=== PATIENT | female | born 1965 | race Caucasian/White ===

== ENCOUNTER 2018-01-01 08:48 | Day surgery (SDC) | payer OTHER ==
[2017-12-29 11:09] LABS: Absolute Lymphocytes (CBC) 2.1 K/uL (0.7-4.9); Absolute Monocytes 0.7 K/uL (0.1-1.3); Absolute Neutrophil 7.6 K/uL (1.8-8.0); Basophils % 0.6 % (0-1.3); Eosinophils % 1.5 % (0-4.4); Hematocrit 43.5 % (36.0-45.0); Lymphocytes % 19.9 % (15.3-44.8); MCH 29.7 pg (27.0-35.0); MCV 89.2 fL (80-100); MPV 8.7 fL (7.6-11.3); Monocytes % 6.6 % (3.3-12.3); RBC Red Blood Cell Count 4.88 M/uL (3.86-4.86)
[2017-12-29 11:28] LABS: BUN Blood Urea Nitrogen 12 mg/dL (7-18); Bicarbonate 29 mmol/L (21-32); Glucose Level 81 mg/dL (74-106); Sodium Level 139 mmol/L (136-145)
[2018-01-01] MEDS: D50W 25 GM/50 ML SYRINGE IV ONE ×2 (09:52→11:10)
[2018-01-01] MEDS ORDERED: SCOPOLAMINE HYDROBROMIDE PATCH TD ONE (10:02)
[2018-01-01] MEDS ORDERED: NA CHLORIDE 0.9% 1,000 ML ONE ×2 (10:03→13:15)
[2018-01-01] MEDS ORDERED: ROCURONIUM 50 MG/5 ML VIAL IV ONE (10:32)
[2018-01-01] MEDS ORDERED: PROPOFOL 200 MG/20 ML VIAL IV ONE (10:32)
[2018-01-01] MEDS ORDERED: DEXAMETHASONE 10 MG/ML VIAL ONE (10:32)
[2018-01-01] MEDS ORDERED: MIDAZOLAM HCL 2 MG/2 ML INJ ONE (10:33)
[2018-01-01] MEDS ORDERED: LIDOCAINE 2% MPF 5 ML VIAL ONE (10:33)
[2018-01-01] MEDS ORDERED: FENTANYL CITR 250 MCG/5 ML ONE (10:33)
[2018-01-01] MEDS ORDERED: ONDANSETRON HCL 40 MG/20 ML VIAL ONE (10:33)
[2018-01-01] MEDS: NA CHLORIDE 0.9% 1,000 ML ONE ×5 (11:35→12:45)
[2018-01-01] MEDS: CEFAZOLIN/SWI 2gm 2 GM/20 ML SYR IV SCH ×2 (11:35→11:38)
[2018-01-01] MEDS ORDERED: EPHEDRINE SULF 50 MG/5 ML SYR ONE (11:44)
[2018-01-01] MEDS ORDERED: FENTANYL CITR 100 MCG/2 ML ONE (12:44)
[2018-01-01] MEDS ORDERED: KETOROLAC 30 MG/ML INJ ONE (13:59)
[2018-01-01] MEDS ORDERED: METOCLOPRAMIDE 10 MG/2mL INJ ONE (14:18)
[2018-01-01] MEDS: MORPHINE 4 MG/ML SYR ONE ×2 (14:52→14:57)
[2018-01-01] MEDS ORDERED: ONDANSETRON 4 MG/2 ML VIAL ONE (15:54)
[2018-01-01] MEDS ORDERED: IBUPROFEN 200 MG TAB PO ONE (16:06)
--- NOTE | 2018-01-02 01:24 | OP ---
Date of Procedure: 01/01/2018 Surgeon: Nicolle Wood MD Packaging Sales: Boubacar Trevino. Preoperative Diagnoses: Heavy menstrual bleeding, recurrent after ablation, dysmenorrhea. Postoperative Diagnoses: Heavy menstrual bleeding, recurrent after ablation, dysmenorrhea and endome triosis. Procedures Performed: Total laparoscopic hysterectomy, bilateral salpingo-oophorectomy, endometriosi s excision and cystoscopy. Estimated Blood Loss: Minimal. Complications: No complications. Drains: No drains. Condition: Stable. Specimens: Uterus bilateral tubes and ovaries along with the endometriosis on the utero-ovarian liga ment as well as in the posterior cul-de-sac on the peritoneum, which was included with the uterine sp ecimen. Findings: Uterus was mildly enlarged. There was evidence of endometriotic cyst on the utero-ovarian ligament and there were adhesions of the tubes to the anterior cul-de-sac peritoneum, both on the le ft and right side. There were bilateral hydrosalpinges, left more than the right side. The tube was adhered to the round ligament on both sides. Ovaries appeared to be mostly unremarkable. There is endometriosis in the posterior cul-de-sac on the peritoneum, right below the level of the vaginal cuf f here. The excision was done further down enough to be able to remove the endometriosis. No endometriotic implants were seen. After the procedure was done, pelvic peritoneum and tissues wer e cleaned. Cysto, patent ureteric orifices and no evidence of any physical or electrical trauma to t he bladder. The patient had heavy periods and she underwent endometrial sampling and then an endometrial ablation procedure last year. However, in the last 6 months, she has recurred with her bleeding and the malu ods were very painful, so she had seen me, we discussed about need for hysterectomy if ablation has r ecurred and her pain is intolerable. In the last 3 months, the periods have not come back and she is perimenopausal and however we discussed about the procedure itself and the patient wanted to proceed with hysterectomy, tubes and ovaries removal since she did not want to take any further chances of h aving periods. Also given her risk factors for endometrial adenocarcinoma or overweight status and d iabetes, decided to proceed with this. Description Of Procedure: After informed consent was verified, she was taken back to the OR, placed in a supine fashion on the operating table. After general anesthesia was given, she was placed in a dorsal lithotomy position using Rommel stirrups. Pelvic exam was performed. Uterus was anteflexed an d 8 weeks size. No adnexal masses. Abdomen, vulva, vagina, and perineum were prepped and draped in a sterile fashion. One gram of Ancef was given preop. SCDs were started and her sugars were checked. After Miller was placed and a drain was attached to cysto bag for retrograde filling and then a large VCare was fixed inside the uterus and this area was draped. A 1 cm infraumbilical incision was made with a scalpel using the open laparoscopy technique. Fascia was incised and tagged. The peritoneum was entered bluntly. Site of entry was checked and was unrem arkable. Upper abdominal surfaces were completely normal. No evidence of any endometriosis. Liver and gallbladder normal. The patient was placed in T-murray, little steeper than usual because of her w eight and the fat contents of the abdomen. A 5 mm left lower quadrant and a 10 mm suprapubic ports w ere placed under direct vision. Later on, a right lower quadrant 5 mm was also placed pretty close t o the vessels; however, there was just very superficial bleeding. No hematoma at the end of the case or evidence of any brisk bleeding despite taking the pneumoperitoneum down. There is a hysterectomy and the pelvic cavity was surveyed and findings as above. There were adhesio ns of the anterior cul-de-sac to the left tube. The tubes had hydrosalpinx and appeared to be shorte nick. There were endometriotic cysts on the utero-ovarian ligament attached to the ovary on its media l aspect than on the left side. This was all on the left than on the right side. There were adhesio ns of the tube to the round ligament and the anterior cul-de-sac. All these were with wayne p dissection with scissors. The bowel was adhered to the left rim of the pelvic inlet. The epiploic ae of the colon had to be taken down from the sidewall in order for me to visualize the ureter and on ce all these were taken down with sharp dissection, then the infundibulopelvic ligament was also rele ased and was easy to cauterize. So at this point, the cul-de-sac adhesions were taken down with the help of sharp scissors. Then, the tube was and the tube was dissected with the LigaSure an d removed, retrieved a specimen. On the opposite side, the anterior cul-de-sac was released from the round ligament and tube, then the round ligament and the tube had to be dissected to separate them f rom each other. There were adhesions of the ovary to the posterior aspect of the lateral wall of the uterus on the right side. All these were taken down to free up the entire adnexa. Then, after the anterior cul-de-sac was surveyed and normal anatomy was restored, it was filled and drained to see it 's borders. All these appeared to be unremarkable. Then, the dissection was started in the anterior peritoneum over the broad ligament on the left side and carried over the bladder flap and to the rig ht side until it got to the round ligament. Then, a window was made in the mesosalpinx and then the round ligament was taken down separately with the LigaSure. Then, the utero-ovarian ligaments with e ndometriosis were first excised. Then, the utero-ovarian ligament was taken down. The posterior per itoneum was taken down and dissection was carried so that the endometriosis was also excised here wit h the help of push spread dissection and the posterior midline aspect. Once all this was included wi th the specimen side, then went on to take down the broad ligament and skeletonized vessels and then on the opposite side, similar dissection was performed. However, on this side, the utero-ovarian lig ament was taken down. The round ligament was taken down and then the posterior part of the broad lig ament was opened up and the vessels were skeletonized. The bladder flap was created with the help of a monopolar hook blade. Then, bladder was dissected down at least 2 cm to 3 cm. Vessels were disse cted laterally after the anterior cervical branch was taken down, then the medial window was made for the vessels and these were taken with a basket tip bipolar and then the LigaSure. The cardinal liga ments were also taken down and on the opposite side all similar dissection was done, then the colpoto my was performed the monopolar hook blade in a circumferential fashion. Specimen detached and remove d through the vagina. There was no evidence of any bleeding. Thorough irrigation and suction were p erformed and appeared to be unremarkable. The ureters appeared to be unremarkable. Then, the ovary from the left side was removed with the help of the cautery with the LigaSure at the IP ligament and then the tube and ovary were dissected from the right side and all the specimens were retrieved throu gh the vagina. Thorough irrigation and suction were performed of the vaginal cuff and this was close d with the help of 2 simple 0 Vicryl stitches at each end and then 3 [id number] in the middle. T horough irrigation and suction were performed. Excellent hemostasis. No bleeding at the site of the left port. After desufflating the gas, we observed to see if there was bleeding and there was not a nd the other trocars were removed. The fascia at the umbilicus closed with a 0 Vicryl in a figure-of -eight fashion and at the suprapubic site with a simple 0 Vicryl stitch and all skin incisions with 4 -0 Monocryl. Vaginal bulb and Miller removed. Cystoscopy was performed with a 17-Khmer sheath, normal saline and 30-degree lens. Strong jets of urine from both ureteric orifices, probably no evidence of any electr ical, mechanical or thermal injury to the bladder. A similar thing with the ureters and the abdomen as well. Instrument, needle, and sponge counts were done and were correct x3. Bladder was drained. The patient was recovered from anesthesia and taken to PACU in stable condition. EBL was minimal. RUSTY/TONI Voice ID: [id number] Report ID: [id number]
== END 2018-01-01 16:45 | disposition home or self-care (01) ==
LOC: OR 08:48
PROVIDERS: ATTEND Obstetrics & Gynecology
PROC: 0UT24ZZ Resection of Bilateral Ovaries, Percutaneous Endoscopic Approach (ICD-10-PCS; 2018-01-01)
PROC: 0UT74ZZ Resection of Bilateral Fallopian Tubes, Percutaneous Endoscopic Approach (ICD-10-PCS; 2018-01-01)
PROC: 0TJB8ZZ Inspection of Bladder, Via Natural or Artificial Opening Endoscopic (ICD-10-PCS; 2018-01-01)
PROC: 0UT94ZZ Resection of Uterus, Percutaneous Endoscopic Approach (ICD-10-PCS; principal; 2018-01-01 10:30)
DX: N92.1 Excessive and frequent menstruation with irregular cycle (principal); E11.9 Type 2 diabetes mellitus without complications; Z79.84 Long term (current) use of oral hypoglycemic drugs; Z79.4 Long term (current) use of insulin; N94.6 Dysmenorrhea, unspecified; N32.81 Overactive bladder; I10 Essential (primary) hypertension; N87.9 Dysplasia of cervix uteri, unspecified; N80.0 Endometriosis of uterus; N83.8 Other noninflammatory disorders of ovary, fallopian tube and broad ligament; N83.292 Other ovarian cyst, left side; N94.89 Other specified conditions associated with female genital organs and menstrual cycle
CPT/HCPCS: 36415; 80048; 82962; 85025; 86850; 86900; 86901; 88305; 88307; J0690; J1100; J2250; J2405; J2765; J3010; J7030

== ENCOUNTER 2022-02-07 20:17 | Inpatient (IN) | payer OTHER ==
--- NOTE | 2022-02-07 21:20 | ER ---
Nurse's Notes [facility] Name: Halie Landa Age: 56 yrs Sex: Female : 1965 Arrival Date: 02/07/2022 Time: 20:22 Bed 15 Private MD: Diagnosis: Cellulitis of right upper limb;Failure of outpatient therapy Presentation: 02/07 20:49 Chief complaint: Patient states: "I started having tightness to my elbow Friday on my vc1 way home from work, brooke Calvin started me on and antibiotic and its just getting worse and worse.". Coronavirus screen: Vaccine status: Patient reports receiving the 2nd dose of the covid vaccine. Plus booster, Moderna. Ebola Screen: No symptoms or risks identified at this time. Initial Sepsis Screen: Does the patient meet any 2 criteria? HR > 90 bpm. No. Patient's initial sepsis screen is negative. Does the patient have a suspected source of infection? Yes: Skin breakdown/wound. Risk Assessment: Do you want to hurt yourself or someone else? Patient reports no desire to harm self or others. Onset of symptoms was February 04, 2022. 20:49 Method Of Arrival: Ambulatory vc1 20:49 Acuity: [place] 3 vc1 Triage Assessment: 20:52 General: Appears in no apparent distress. comfortable, Behavior is calm, cooperative, vc1 appropriate for age. Pain: Complains of pain in right elbow Pain does not radiate. Pain currently is 6 out of 10 on a pain scale. EENT: No signs and/or symptoms were reported regarding the EENT system. Neuro: Level of Consciousness is awake, alert, obeys commands, Oriented to person, place, time, situation, Appropriate for age. Cardiovascular: Patient's skin is warm and dry. Respiratory: Airway is patent Respiratory effort is even, unlabored, Respiratory pattern is regular, symmetrical. GI: No deficits noted. : No deficits noted. Derm: Wound noted right elbow Wound is Red, inflamed, warm to touch. Reports pain that is 6 out of 10 on a pain scale. Musculoskeletal: Range of motion: limited in right elbow. Historical: - Allergies: 20:52 No Known Allergies; vc1 - PMHx: 20:52 Diabetes mellitus; Hypertensive disorder; high chloresterol; vc1 - Immunization history:: Adult Immunizations up to date, Client reports receiving the 2nd dose of the Covid vaccine. - Social history:: Smoking status: Patient denies any tobacco usage or history of. - Family history:: not pertinent. - Hospitalizations: : No recent hospitalization is reported. Screenin:55 Abuse screen: Denies threats or abuse. Nutritional screening: No deficits noted. vc1 Tuberculosis screening: No symptoms or risk factors identified. Fall Risk None identified. Assessment: 21:23 Pain: Complains of pain in back of right arm. Musculoskeletal: Range of motion: intact ja4 in all extremities, Swelling present in back of right arm. 22:43 Reassessment: pt appears to be having a reaction to the meds given to her. provider [email or web address] notified. pt face started itching and turning red. unable to tell which meds caused it. will cont to monitor. benadryl given. Vital Signs: 20:49 BP 138 / 78; Pulse 113; Resp 15; Temp 100.2; Pulse Ox 100% on R/A; Weight 88.45 kg; vc1 Height 5 ft. 5 in. (165.10 cm); Pain 6/10; 21:47 BP 141 / 70; Pulse 106; Resp 20; Pulse Ox 99% on R/A; Pain 7/10; ja4 22:46 Pain 5/10; ja4 20:49 Body Mass Index 32.45 (88.45 kg, 165.10 cm) vc1 ED Course: 20:22 Patient arrived in ED. ja2 20:30 Nixon Khan MD is Attending Physician. rn 20:46 Cristhian Carney RN is Primary Nurse. ja4 20:52 Triage completed. vc1 20:55 Arm band placed on right wrist. vc1 20:55 Patient has correct armband on for positive identification. Bed in low position. Pulse vc1 ox on. NIBP on. 21:19 Kurt Brown MD is Hospitalizing Provider. rn 21:23 No provider procedures requiring assistance completed. Inserted saline lock: 18 gauge aishwarya in left antecubital area, using aseptic technique. Blood collected. 21:37 Lactate Sent. ja4 21:37 Basic Metabolic Panel Sent. ja4 21:37 Blood Culture Adult (2) Sent. ja4 21:38 CBC with Diff Sent. ja4 02/08 16:50 Patient admitted, IV remains in place. jh6 Administered Medications: 02/07 21:47 Drug: vancoMYCIN 1 grams Route: IVPB; Infused Over: 2 hrs; Site: left antecubital; [facility] 22:29 Drug: Zofran (Ondansetron) 4 mg Route: IVP; Site: left antecubital; ja4 22:30 Drug: morphine 4 mg Route: IVP; Infused Over: 4 mins; Site: left antecubital; 4 22:46 Follow up: Pain 5/10 Adult ja 22:55 Drug: diphenhydrAMINE 50 mg Route: IVP; Site: left antecubital; 4 Medication: 20:55 VIS not applicable for this client. vc1 Outcome: 21:19 Decision to Hospitalize by Provider. yared 02/08 04:58 Admitted to ER Hold. Please see [facility] for further documentation. [facility] 16:49 Admitted to Tele accompanied by tech, room 418, Report called to [facility] 16:49 Condition: good 16:54 Patient left the ED. [facility] Signatures: Nixon Khan MD MD rn Alexander, Jessica ja2 Hastedt, Jennifer RN RN 6 Courtney Ross RN RN vc1 Cristhian Carney RN RN [email or web address]
--- NOTE | 2022-02-07 21:20 | EDPHYS ---
Physician Documentation [facility] Name: Halie Landa Age: 56 yrs Sex: Female : 1965 Arrival Date: 02/07/2022 Time: 20:22 Bed 15 Private MD: ED Physician Nixon Khan HPI: 02/07 20:25 This 56 yrs old Female presents to ER via Unassigned with complaints of Arm Swelling. snw 20:25 Dr. Calvin phoned the ED reporting that this patient was seen in his clinic this week snw with a rash to her torso, cortisone injection given and pt did have some relief. Three days ago her elbow began to swell and he dx her with olecranon bursitis. She was placed on Keflex. Pt is now having fever and increased discomfort. Dr. Calvin instructed her to come to the ED for admission for IV abx.. 21:04 The patient presents with cellulitis of the right elbow. rn 21:04 Description: erythematous, hot, warm. Onset: The symptoms/episode began/occurred 4 rn day(s) ago. Possible cause(s): unknown. Associated signs and symptoms: Pertinent positives: erythema, fever, swelling, Pertinent negatives: discharge, drainage. Modifying factors: the symptoms are alleviated by nothing, the symptoms are aggravated by movement, touching. Severity of symptoms: At their worst the symptoms were moderate, in the emergency department the symptoms are unchanged. The patient has not experienced similar symptoms in the past. Placed on keflex, worsening cellulitis, sent in for admission for IV abx by Dr. Calvin. . Historical: - Allergies: 20:52 No Known Allergies; vc1 - PMHx: 20:52 Diabetes mellitus; Hypertensive disorder; high chloresterol; vc1 - Immunization history:: Adult Immunizations up to date, Client reports receiving the 2nd dose of the Covid vaccine. - Social history:: Smoking status: Patient denies any tobacco usage or history of. - Family history:: not pertinent. - Hospitalizations: : No recent hospitalization is reported. ROS: 21:04 Constitutional: + for fever Cardiovascular: Negative for chest pain, palpitations, and rn edema Respiratory: Negative for shortness of breath, cough, wheezing, and pleuritic chest pain, Abdomen/GI: Negative for abdominal pain, nausea, vomiting, diarrhea, and constipation, MS/Extremity: + right arm redness and warmth Skin: Negative for injury Neuro: Negative for headache, weakness, numbness, tingling, and seizure. Exam: 21:04 Constitutional: This is a well developed, well nourished patient who is awake, alert, rn and in no acute distress. Head/Face: Normocephalic, atraumatic. Cardiovascular: Tachycardic, regular Respiratory: No increased work of breathing, no retractions or nasal flaring. Skin: Warm, dry, + erythema and induration right elbow, no proximal streaking MS/ Extremity: Pulses equal, no cyanosis, tenderness over right elbow at area of erythema, no fluctuance, good ROM of right elbow. Neuro: Awake and alert, GCS 15 Vital Signs: 20:49 BP 138 / 78; Pulse 113; Resp 15; Temp 100.2; Pulse Ox 100% on R/A; Weight 88.45 kg; vc1 Height 5 ft. 5 in. (165.10 cm); Pain 6/10; 21:47 BP 141 / 70; Pulse 106; Resp 20; Pulse Ox 99% on R/A; Pain 7/10; ja4 22:46 Pain 5/10; ja4 20:49 Body Mass Index 32.45 (88.45 kg, 165.10 cm) vc1 MDM: 20:30 Patient medically screened. rn 21:18 Differential diagnosis: cellulitis, infected bursitis, bursitis. Data reviewed: vital rn signs, nurses notes, and as a result, I will admit patient. Counseling: I had a detailed discussion with the patient and/or guardian regarding: the historical points, exam findings, and any diagnostic results supporting the discharge/admit diagnosis, the need for further work-up and treatment in the hospital. Admission orders: after a detailed discussion of the patient's condition and case, the admit orders are written by me. 02/07 20:46 Order name: CBC with Diff; Complete Time: 21:40 rn 02/07 20:46 Order name: Basic Metabolic Panel; Complete Time: 21:58 rn 02/07 20:46 Order name: Blood Culture Adult (2) rn 02/07 20:51 Order name: Lactate; Complete Time: 21:58 la1 02/08 00:42 Order name: SARS RAPID tw5 02/08 03:34 Order name: CBC with Automated Diff; Complete Time: 04:09 EDMS 02/08 03:52 Order name: Basic Metabolic Panel; Complete Time: 04:09 EDMS 02/08 04:07 Order name: SARS-COV-2 RT PCR; Complete Time: 04:09 EDMS 02/08 08:21 Order name: Glucose, Ancillary Testing EDMS 02/08 11:33 Order name: Glucose, Ancillary Testing EDMS 02/08 12:07 Order name: US EDMS 02/08 13:16 Order name: RAD EDMS 02/08 16:45 Order name: Glucose, Ancillary Testing EDMS 02/07 20:46 Order name: IV Start; Complete Time: 21:38 rn Administered Medications: 21:47 Drug: vancoMYCIN 1 grams Route: IVPB; Infused Over: 2 hrs; Site: left antecubital; ja4 22:29 Drug: Zofran (Ondansetron) 4 mg Route: IVP; Site: left antecubital; ja4 22:30 Drug: morphine 4 mg Route: IVP; Infused Over: 4 mins; Site: left antecubital; ja4 22:46 Follow up: Pain 5/10 Adult ja4 22:55 Drug: diphenhydrAMINE 50 mg Route: IVP; Site: left antecubital; ja4 Disposition Summary: 02/07/22 21:19 Hospitalization Ordered Hospitalization Status: Inpatient Admission rn Provider: Kurt Brown rn Condition: Stable rn Problem: new rn Symptoms: have worsened rn Bed/Room Type: Standard rn Location: Telemetry/MedSurg (Inpatient)(02/08/22 15:41) [facility] Room Assignment: 418(02/08/22 15:41) [facility] Diagnosis - Cellulitis of right upper limb rn - Failure of outpatient therapy rn Forms: - Medication Reconciliation Form rn - SBAR form rn Signatures: Dispatcher [employer] Jyoti Gibson, NE[employer] MANAGER PRACTICE-Nixon Evans MD MD rn Attema, Lee, FNP-C FNP-Phoebe Mcknight RN Lupillo Bhakta RN RN ja1 Courtney Ross RN RN 1 Cristhian Carney, RN RN ja4 Corrections: (The following items were deleted from the chart) 02/08 00:14 02/07 21:19 Telemetry/MedSurg (Inpatient) [facility] 02/08 00:14 02/07 21:19 [facility] 02/08 15:41 00:14 [facility] ja1 15: 00:[address] [facility] ja1
[2022-02-07 21:36] LABS: Absolute Lymphocytes (CBC) 1.2 K/uL (0.7-4.9); Hematocrit 40.7 % (36.0-45.0); Lymphocytes % 9.8 % (15.3-44.8); MCV 90.2 fL (80-100); MPV 8.4 fL (7.6-11.3); RBC Red Blood Cell Count 4.51 M/uL (3.86-4.86)
[2022-02-07] MEDS ORDERED: VANCOMYCIN 1 GM/VIAL ONE (21:49)
[2022-02-07] MEDS ORDERED: NA CHLORIDE 0.9% 250 ML ONE (21:49)
[2022-02-07 21:51] LABS: Potassium 4.1 mmol/L (3.5-5.1)
[2022-02-07] MEDS ORDERED: MORPHINE 4 MG/ML SYR ONE (22:35)
[2022-02-07] MEDS ORDERED: ONDANSETRON 4 MG/2 ML VIAL ONE (22:36)
[2022-02-07] MEDS ORDERED: DIPHENHYDRAMINE 50 MG/ML VIAL ONE (22:47)
[2022-02-08] MEDS ORDERED: ONDANSETRON 4 MG/2 ML VIAL IV PRN (00:34)
--- NOTE | 2022-02-08 00:46 | P.HP ---
Certification for Inpatient Patient admitted to: Inpatient With expected LOS: >2 Midnights Patient will require the following post-hospital care: None Practitioner: I am a practitioner with admitting privileges, knowledge of patient current condition, hospital course, and medical plan of care. Services: Services provided to patient in accordance with Admission requirements found in Title 42 Section 412.3 of the Code of Federal Regulations <RejiNicolas Jang - Last Filed: 02/08/22 00:42> Patient History Date of Service: 02/08/22 Reason for admission: Sepsis, cellulitis History of Present Illness: 56-year-old female with history of insulin-dependent diabetes, hypertension and hyperlipidemia presents to the emergency department for cellulitis of the right arm. She reports that on 02/04/2022 she noticed some pain and redness on her right elbow she was seen by her PCP and prescribed Keflex on 02/05/2022 which she has taken since then the last day or 2 she is noted increasing pain, erythema to the area as well as some constitutional symptoms with chills and possible low- grade fever at home. Upon arrival to the emergency department patient was tachycardic with a heart rate of 113 she also met the SIRS criteria for a white blood cell count of 12.4 with source of infection her lactic acid was 1.1 no hypotension was recorded. Patient meets criteria for sepsis secondary to cellulitis of the right elbow area and may have begun as a bursitis but now appears to be more cellulitic of the right arm surrounding the elbow she has no pain with range of motion of her elbow there is no fluctuant area or fluid collection to incise or drain on exam. Patient was given vancomycin in the emergency room but had an adverse reaction likely with "red man" syndrome after receiving vancomycin. Medication was discontinued antibiotic switched to Ancef. Will admit for further evaluation and management. 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 with her family - Family History Family History: Reviewed- Non-Contributory - Social History Smoking Status: Never smoker Alcohol use: No CD- Drugs: No Caffeine use: Yes Place of Residence: Home <Nicolas Mendoza - Last Filed: 02/08/22 00:42> Date of Service: 02/08/22 <Kurt Brown - Last Filed: 02/08/22 16:31> Allergies codeine Allergy (Verified 12/29/17 10:05) Nausea/Vomiting Home Medications: Atorvastatin Calcium [Lipitor] 20 mg PO DAILY 10/14/16 Dulaglutide [Trulicity] 0.75 mg SQ EVERY 7TH DAY 10/14/16 Empagliflozin [Jardiance] 10 mg PO DAILY 10/14/16 Irbesartan [Avapro] 150 mg PO [id number] 10/14/16 Insulin Degludec [Tresiba Flextouch U-200] 40 unit SQ DAILY 12/29/17 Zolpidem Tartrate [Ambien] 10 mg PO BEDTIME PRN PRN 12/29/17 Fluoxetine HCl [Prozac] 20 mg PO DAILY 02/08/22 Review of Systems 10-point ROS is otherwise unremarkable General: Fever, Chills Integumentary: Rash, As per HPI <Nicolas Mendoza - Last Filed: 02/08/22 00:42> Physical Examination - Physical Exam General: Alert, In no apparent distress, Oriented x3 HEENT: Atraumatic, PERRLA, Mucous membr. moist/pink, EOMI, Sclerae nonicteric Neck: Supple, 2+ carotid pulse no bruit, No LAD, Without JVD or thyroid abnormality Respiratory: Clear to auscultation bilaterally, Normal air movement Cardiovascular: Regular rate/rhythm, Normal S1 S2 Gastrointestinal: Normal bowel sounds, No tenderness Musculoskeletal: No tenderness Integumentary: Tenderness/swelling, Erythema (Surrounding right elbow including proximal forearm and distal humeral area), Warmth Neurological: Normal gait, Normal speech, Normal strength at 5/5 x4 extr, Normal tone, Normal affect Lymphatics: No axilla or inguinal lymphadenopathy - Studies Laboratory Data (last 24 hrs) 02/07/22 21:11: Sodium 139, Potassium 4.1, BUN 8, Creatinine 0.86, Glucose 122 H 02/07/22 21:11: WBC 12.4 H, Hgb 13.5, Hct 40.7, Plt Count 295 <Nicolas Mendoza - Last Filed: 02/08/22 00:42> - Studies Laboratory Data (last 24 hrs) 02/07/22 21:11: Sodium 139, Potassium 4.1, BUN 8, Creatinine 0.86, Glucose 122 H 02/07/22 21:11: WBC 12.4 H, Hgb 13.5, Hct 40.7, Plt Count 295 <Kurt Brown - Last Filed: 02/08/22 16:31> Assessment and Plan - Plan Assessment: Sepsis secondary to cellulitis of the right upper extremityfailed outpatient therapy Diabetes type 2insulin-dependent Hyperlipidemia Plan: Sepsis secondary to cellulitis of the right upper extremityfailed outpatient therapy: Meet SIRS criteria for heart rate and leukocytosis, normal lactic acid no hypotension or other organ dysfunction to suggest severe sepsis. Patient had adverse reaction with "red man" syndrome to vancomycin given in the ER antibiotic switched to Ancef. Patient had been on Keflex 3 times daily for the past 4 days without improvement. Patient without painful range of motion of the elbow doubt septic joint, no area of fluctuance or fluid collection noted may have begun as bursitis but now seems developed into a cellulitis. Diabetes type 2insulin-dependent: ACH S Accu-Chek, sliding scale insulin. Continue patient's long-acting insulin when doses confirmed. Hyperlipidemia: Continue home medications. DVT PPX: Lovenox Code status: Full Discharge Plan: Home Plan to discharge in: 72 Hours - Advance Directives Does patient have a Living Will: No Does patient have a Durable POA for Healthcare: No - Code Status/Comfort Care Code Status Assessed: Yes (Full code) Critical Care: No Time Spent Managing Pts Care (In Minutes): 70 <Nicolas Mendoza - Last Filed: 02/08/22 00:42> Physician Review: Patient Assessed, Agree with Above Assessment and Plan <Kurt Brown - Last Filed: 02/08/22 16:31>
[2022-02-08] MEDS ORDERED: CEFAZOLIN 1 GM in NA CHLORIDE 0.9% 50 ML IVPB SCH (01:00)
[2022-02-08 03:34] LABS: Absolute Lymphocytes (CBC) 1.5 K/uL (0.7-4.9); Hematocrit 35.4 % (36.0-45.0); Lymphocytes % 13.5 % (15.3-44.8); MCV 90.1 fL (80-100); MPV 8.5 fL (7.6-11.3); RBC Red Blood Cell Count 3.93 M/uL (3.86-4.86)
[2022-02-08 03:38] LABS: Potassium 3.7 mmol/L (3.5-5.1)
[2022-02-08] MEDS ORDERED: NA CHLORIDE 0.9% 50 ML ONE ×2 (03:48→09:03)
[2022-02-08] MEDS ORDERED: CEFAZOLIN SODIUM 1 GM/VIAL ONE (03:48)
[2022-02-08] MEDS ORDERED: ACETAMINOPHEN 325 MG TABLET PO PRN (05:10)
[2022-02-08] MEDS ORDERED: ACETAMINOPHEN 325 MG TABLET ONE ×2 (05:19→10:39)
[2022-02-08] MEDS: INSULIN -REGULAR HUMAN 50 UNIT/0.5 ML ML SQ SCH ×4 (07:30→21:00)
[2022-02-08] MEDS: ENOXAPARIN 40 MG/0.4 ML SQ SCH (09:00)
[2022-02-08] MEDS: CEFTRIAXONE 1,000 MG in NA CHLORIDE 0.9% 50 ML IVPB SCH (09:00)
[2022-02-08] MEDS: DOXYCYCLINE 100 MG in NA CHLORIDE 0.9% 100 ML IVPB SCH ×2 (09:00→21:08)
[2022-02-08] MEDS ORDERED: CEFTRIAXONE 1000 MG/VIAL ONE (09:03)
[2022-02-08] MEDS ORDERED: ENOXAPARIN 40 MG/0.4 ML SQ ONE (09:03)
--- NOTE | 2022-02-08 12:07 | RAD REPORT ---
EXAM DESCRIPTION: US - Extremity Nonvascular Complete - 02/08/2022 12:00 pm CLINICAL HISTORY: ole- bursus r/o Elbow redness and pain COMPARISON: No comparisons TECHNIQUE: Real-time sonographic evaluation of the area of interest was performed. FINDINGS: Soft tissue edema, interstitial fluid and thickening is present along the posterior elbow. This most likely represents bursitis. Localized fluid collection to indicate well-formed abscess is not seen.
--- NOTE | 2022-02-08 13:15 | RAD REPORT ---
EXAM DESCRIPTION: Philip Single View02/08/2022 12:57 pm CLINICAL HISTORY: Cough COMPARISON: 2018 FINDINGS: The lungs appear clear of acute infiltrate. The heart is normal size IMPRESSION: No acute abnormalities displayed
[2022-02-08] MEDS: MORPHINE 2 MG/ML SYR IV PRN ×2 (16:44→21:09)
--- NOTE | 2022-02-08 16:45 | CON ---
History Of Present Illness: This is a 56-year-old female I was consulted for cellulitis of right elb ow and forearm area. The patient has significant past medical history of diabetes mellitus for 20 pl us years, hypertension, hyperlipidemia, tobacco use, she quit in 1999. The patient patient's symptom s started last Friday. 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 The patient denies any headache, nausea, vomiting, chest pain, abdominal pain, constipation, diarrhea. A week prior to that , she had rashes on both shoulder area. Does not remember what caused them and she was given steroid s by the primary care doctor, also for the cellulitis she was given cephalexin, which did not help. Her pain in lower quadrant worsened. She received a dose of vancomycin last night, which caused her to have Red man syndrome. Past Medical History: As per HPI. Social History: Tobacco positive, quit in 1999. Alcohol negative. Family History: Noncontributory. Medications: The patient is currently on IV Rocephin and doxycycline. See MARS for other medication s. Allergies: CODEINE. Review of Systems: A 10-point review was performed. Physical Examination: General: This is a 56-year-old female, sitting in the emergency room 15, on a stretcher. by the bedside, not in any acute cardiopulmonary distress. Vital Signs: Temperature 98, pulse 70, respirations 16, blood pressure 114/53. HEENT: Unremarkable. Neck: Supple. Lungs: Clear to auscultation. Heart: S1, S2. Regular. Abdomen: Soft, nontender. Bowel sounds present. Extremities: Trace edema, right arm with erythematous changes, increased warmth and tenderness at th e elbow and forearm area, which has been highlighted with a marker. Laboratory Data: Shows [place] [id number] [place] [id number], hemoglobin is 12.1, platelets are 244. Chemistry shows sodium 139, potassium 3.7, chloride 107, bicarb 28, BUN is 7, creatinine 0.7, glucose is 95. B lood cultures done yesterday are pending. Assessment And Plan: Right elbow cellulitis versus bursitis as the patient keeps her elbows on a wor van desk. Currently, the patient is on IV Rocephin and doxycycline after the dose of the vancomycin causing Red man syndrome. We will recommend to continue that antibiotic pending culture results. L eukocytosis, improving. The patient's symptoms have improved. Continue current treatment, diabetes mellitus, and diabetic neuropathy. Total course of 10-14 days depending on the patient's response an d culture reports. We will follow the patient closely. Thank you Dr. Brown for consult. KEM/TONI Voice ID: [id number] Report ID: [id number]
[2022-02-08] MEDS ORDERED: MORPHINE 2 MG/ML SYR ONE (16:48)
[2022-02-08 17:10] VITALS: O2SAT 99
[2022-02-09 03:42] LABS: Absolute Lymphocytes (CBC) 1.2 K/uL (0.7-4.9); Lymphocytes % 14.4 % (15.3-44.8); MCV 89.5 fL (80-100); MPV 8.6 fL (7.6-11.3); RBC Red Blood Cell Count 4.02 M/uL (3.86-4.86)
[2022-02-09 04:00] LABS: Potassium 3.9 mmol/L (3.5-5.1)
[2022-02-09 05:17] VITALS: BMI 32.4
[2022-02-09] MEDS: INSULIN -REGULAR HUMAN 50 UNIT/0.5 ML ML SQ SCH ×4 (07:30→21:00)
[2022-02-09] MEDS ORDERED: POTASSIUM CL SA 10 MEQ TAB PO ONE (09:00)
[2022-02-09] MEDS: CEFTRIAXONE 1,000 MG in NA CHLORIDE 0.9% 50 ML IVPB SCH (09:09)
[2022-02-09] MEDS: ENOXAPARIN 40 MG/0.4 ML SQ SCH (09:09)
[2022-02-09] MEDS: DOXYCYCLINE 100 MG in NA CHLORIDE 0.9% 100 ML IVPB SCH ×2 (09:24→21:40)
[2022-02-09] MEDS: MORPHINE 2 MG/ML SYR IV PRN (16:23)
[2022-02-09] MEDS ORDERED: HYDROCODONE/APAP 5/325 MG TAB PO PRN (17:17)
--- NOTE | 2022-02-09 18:00 | P.PN ---
Subjective Date of Service: 02/09/22 Chief Complaint: Sepsis, cellulitis Subjective: Improving No acute events overnight. She states that her pain and range of motion have improved significantly. Review of Systems 10-point ROS is otherwise unremarkable Musculoskeletal: Arm Pain (right elbow) Integumentary: Rash (right elbow) Physical Examination - Vital Signs Temperature: 97.7 F Blood Pressure: 116/56 Pulse: 79 Respirations: 16 Pulse Ox (%): 98 - Physical Exam General: Alert, In no apparent distress, Oriented x3 HEENT: Atraumatic, Mucous membr. moist/pink, EOMI, Sclerae nonicteric Neck: JVD not distended Respiratory: Clear to auscultation bilaterally, Normal air movement Cardiovascular: No edema, Regular rate/rhythm, Normal S1 S2, No gallops, No rubs, No murmurs Gastrointestinal: Normal bowel sounds, Soft and benign, Non-distended, No tenderness, No rebound, No guarding Musculoskeletal: No clubbing, Other (limited range of motion of right elbow due to pain) Integumentary: Tenderness/swelling, Erythema, Warmth, Other (cellulitis of right elbow - significantly improved compared to demarcation) Neurological: Normal speech, Cranial nerves 3-12 intact, Normal affect Assessment And Plan - Plan # Sepsis likely secondary to Right Elbow Cellulitis and Bursitis # Red Man Syndrome secondary to Vancomycin She met sepsis criteria based on HR > 90 bpm and WBC > 12,000 and the suspected source is cellulitis/bursitis. - Sepsis order set was initiated - Initial Lactate was 1.1 - Blood cultures drawn before antibiotics were given - Broad spectrum antibiotics started: Initially Vancomycin, but developed Red Man Syndrome - Now on Ceftriaxone + Doxycycline - Consulted Infectious Disease and Orthopedic Surgery - Spoke with Dr. Cochran - plan for 10-14 days of antibiotics - Spoke with Dr. Cassidy - plan for non-surgical management - In regards to fluids: - 30 mL/kg of IV fluids was not administered given SBP > 90, MAP > 65, lacti c acid < 4 # Asymptomatic COVID-19 Infection - Chest x-ray = "no acute abnormalities displayed" - Incentive spirometry - Isolation precautions # Type II Diabetes Mellitus - Correction scale insulin # Hyperlipidemia - Continue home atorvastatin Kurt Brown M.D. Discharge Plan: Home Plan to discharge in: 24 Hours
[2022-02-10 03:25] LABS: Absolute Lymphocytes (CBC) 2.1 K/uL (0.7-4.9); Lymphocytes % 28.1 % (15.3-44.8); MCV 88.5 fL (80-100); MPV 8.2 fL (7.6-11.3); RBC Red Blood Cell Count 3.95 M/uL (3.86-4.86)
[2022-02-10 03:37] LABS: Potassium 3.8 mmol/L (3.5-5.1)
--- NOTE | 2022-02-10 06:56 | P.DS ---
Admission Date: 02/08/22 Discharge Date: 02/10/22 Disposition: ROUTINE DISCHARGE Discharge Condition: GOOD Reason for Admission: Sepsis, cellulitis Consultations: 1. Infectious Diseases 2. Orthopedic Surgery Hospital Course: DIAGNOSES: # Sepsis likely secondary to Right Elbow Cellulitis and Bursitis # Red Man Syndrome secondary to Vancomycin # Asymptomatic COVID-19 Infection # Type II Diabetes Mellitus # Hyperlipidemia HOSPITAL COURSE: Ms. Halie Landa is a pleasant 56 year old female with a past medical history significant for type II diabetes mellitus and hypertension who was admitted to the [facility] on 02/08/2022 for right elbow pain. Upon further evaluation, she was found to have sepsis secondary to right elbow cellulitis and bursitis. Right elbow ultrasound revealed, "soft tissue edema, interstitial fluid and thickening is present along the posterior elbow. This most likely represents bursitis. Localized fluid collection to indicate well- formed abscess is not seen." Orthopedic Surgery was consulted and I spoke with Dr. Cassidy. He recommended non-surgical management. Infectious Diseases was consulted and she was evaluated by Dr. Cochran. He recommended 10-14 days of antibiotics. She initially treated with vancomycin, but developed Red Man Syndrome. She was transitioned to ceftriaxone + doxycycline, with significant improvement in her symptoms. I spoke with Dr. Cochran, who has cleared her for discharge with 10 additional days of cefdinir and doxycycline. On 02/10/2022, she was seen on morning rounds and deemed medically stable for discharge. She was discharged with instructions to schedule a follow-up appointment with her PCP (Dr. Calvin) in 3-5 days. She was provided pres criptions for cefdinir and doxycycline. She was given the opportunity to ask questions and reported no further questions. Furthermore, all questions were answered to the best of my ability. Today, I personally spent 20 minutes on her case, of which greater than 50% of the time was spent in patient education, counseling, and coordination of care as described above. - Physical Exam General: Alert, In no apparent distress, Oriented x3 HEENT: Atraumatic, Mucous membr. moist/pink, EOMI, Sclerae nonicteric Neck: JVD not distended Respiratory: Clear to auscultation bilaterally, Normal air movement Cardiovascular: No edema, Regular rate/rhythm, Normal S1 S2, No gallops, No rubs, No murmurs Gastrointestinal: Normal bowel sounds, Soft and benign, Non-distended, No tenderness, No rebound, No guarding Musculoskeletal: No clubbing, Other (improved, but slightly limited range of motion of right elbow due to pain) Integumentary: Tenderness/swelling, Erythema, Warmth, Other (cellulitis of right elbow - significantly improved compared to demarcation) Neurological: Normal speech, Cranial nerves 3-12 intact, Normal affect Vital Signs/Physical Exam: Temp Pulse Resp BP Pulse Ox 98.1 F 68 16 125/61 100 02/10/22 04:00 02/10/22 04:00 02/10/22 04:00 02/10/22 04:00 02/10/22 04:00 Laboratory Data at Discharge: WBC 7.3 K/uL (4.3-10.9) 02/10/22 02:57 Hgb 12.0 g/dL (12.0-15.0) 02/10/22 02:57 Hct 35.0 % (36.0-45.0) L 02/10/22 02:57 Plt Count 226 K/uL (152-406) 02/10/22 02:57 Sodium 139 mmol/L (136-145) 02/10/22 02:57 Potassium 3.8 mmol/L (3.5-5.1) 02/10/22 02:57 BUN 11 mg/dL (7-18) 02/10/22 02:57 Creatinine 0.63 mg/dL (0.55-1.3) 02/10/22 02:57 Glucose 104 mg/dL (74-106) 02/10/22 02:57 Home Medications: Atorvastatin Calcium [Lipitor*] 20 mg PO DAILY 10/14/16 Dulaglutide [Trulicity] 0.75 mg SQ EVERY 7TH DAY 10/14/16 Empagliflozin [Jardiance] 10 mg PO DAILY 10/14/16 Irbesartan [Avapro*] 75 mg PO DAILY 10/14/16 Zolpidem Tartrate [Ambien*] 10 mg PO BEDTIME PRN PRN 12/29/17 Fluoxetine HCl [Prozac] 20 mg PO DAILY 02/08/22 Semaglutide [Ozempic] 1 mg SQ DAILY 02/08/22 Cefdinir [Cefdinir*] 300 mg PO BID 10 Days #20 cap 02/10/22 Doxycycline Hyclate [Vibramycin] 100 mg PO BID 10 Days #20 tab 02/10/22 New Medications: Cefdinir [Cefdinir*] 300 mg PO BID 10 Days #20 cap Doxycycline Hyclate [Vibramycin] 100 mg PO BID 10 Days #20 tab Physician Discharge Instructions: 1. Please schedule a follow-up with your PCP (Dr. Calvin) in 3-5 days. Diet: Regular Activity: Ad shayla Followup: Toi Calvin MD [Primary Care Provider] - (call for an apointment to see in 3-5 days) Time spent managing pt's care (in minutes): 20
[2022-02-10] MEDS: INSULIN -REGULAR HUMAN 50 UNIT/0.5 ML ML SQ SCH (07:30)
[2022-02-10] MEDS: ENOXAPARIN 40 MG/0.4 ML SQ SCH (07:50)
[2022-02-10] MEDS: CEFTRIAXONE 1,000 MG in NA CHLORIDE 0.9% 50 ML IVPB SCH (07:50)
[2022-02-10 07:56] VITALS: BP 125/59; TEMP 97.1
[2022-02-10] MEDS ORDERED: FLUOXETINE 20 MG CAP PO SCH (09:00)
[2022-02-10] MEDS ORDERED: ATORVASTATIN 20 MG TAB PO SCH (09:00)
--- NOTE | 2022-02-13 21:47 | P.PN ---
Date of Service: 02/09/[address] Brown at length. Will continue with IV antibiotics and may be discharged on PO antibiotics once symptoms and exam improves for right elbow cellulitis and bursitis. May followup in my clinic for reevaluation in 1- 2 weeks after discharge. If symptoms or exam worsens, please call for further consultation and evaluation.
== END 2022-02-10 10:19 | disposition home or self-care (01) | DRG 871 ==
LOC: ER 20:17 → ERHOLD 02-08 00:11 → 4TH 02-08 16:32
PROVIDERS: ADMIT Internal Medicine; ATTEND Internal Medicine
DX: A41.9 Sepsis, unspecified organism (principal); U07.1 COVID-19; L03.113 Cellulitis of right upper limb; M71.121 Other infective bursitis, right elbow; E11.9 Type 2 diabetes mellitus without complications; E78.5 Hyperlipidemia, unspecified; L29.9 Pruritus, unspecified; T36.8X5A Adverse effect of other systemic antibiotics, initial encounter; Y92.230 Patient room in hospital as the place of occurrence of the external cause; Z87.891 Personal history of nicotine dependence
CPT/HCPCS: 36415; 71045; 76881; 80048; 82947; 83605; 85025; 87040; 96374; 96375; 99285; J0690; J1200; J1650; J2270; J2405; J3370; J7050; U0003

== ENCOUNTER 2023-05-26 16:17 | Emergency (ER) | payer OTHER ==
--- OUTSIDE RECORDS SUMMARY | 2023-05-26 16:20 | XMS REPORT | Continuity of Care Document ---
:1965 Author Organization [facility] t Address [address] [place] [id number] Care Team Providers Name Role Phone [email or web address] Attending Clinician Unavailable [email or web address] Admitting Clinician Unavailable Problems This patient has no known problems. Allergies, Adverse Reactions, Alerts This patient has no known allergies or adverse reactions. Medications This patient has no known medications. Procedures This patient has no known procedures. Encounters Start End Encounter Admission Attending Care Care Encounter Source Date/Time Date/Time Type Type Clinicians Facility Department ID 2023-05-06 2023-05-06 Outpatient [email or web address] PRIV PRIV [id number] [facility] 00:00:00 00:00:00 [place] [id number] Medic al Results This patient has no known results.
--- NOTE | 2023-05-26 17:27 | ER ---
Nurse's Notes [facility] Name: Halie Landa Age: 57 yrs Sex: Female : 1965 Arrival Date: 05/26/2023 Time: 16:17 Bed 9 Private MD: Diagnosis: Cutaneous abscess, unspecified Presentation: 05/26 16:38 Chief complaint: Infected cuticle on left index finger x 2 weeks. Coronavirus screen: hb At this time, the client does not indicate any symptoms associated with coronavirus-19. Ebola Screen: No symptoms or risks identified at this time. Initial Sepsis Screen: Does the patient meet any 2 criteria? No. Patient's initial sepsis screen is negative. Does the patient have a suspected source of infection? No. Patient's initial sepsis screen is negative. Risk Assessment: Do you want to hurt yourself or someone else? Patient reports no desire to harm self or others. Onset of symptoms was May 26, 2023. 16:38 Method Of Arrival: Ambulatory hb 16:38 Acuity: [place] 4 hb Historical: - Allergies: 16:40 Codeine; hb 16:40 Vancomycin; hb - Home Meds: 16:40 Jardiance 25 mg oral tablet daily [Active]; rosuvastatin 10 mg oral tablet daily hb [Active]; irbesartan 75 mg oral tablet [Active]; fluoxetine 20 mg Oral tablet daily [Active]; Ozempic 2 mg/dose (8 mg/3 mL) subcutaneous Pen Injector every week [Active]; Ambien 5 mg Oral tablet every day at bedtime [Active]; - PMHx: 16:40 diabetes mellitus; high chloresterol; Hypertensive disorder; hb - Immunization history:: Adult Immunizations up to date. - Social history:: Smoking status: Patient denies any tobacco usage or history of. Screenin:41 [facility] ED Fall Risk Assessment (Adult) History of falling in the last 3 months, mb9 including since admission No falls in past 3 months (0 pts) Confusion or Disorientation No (0 pts) Intoxicated or Sedated No (0 pts) Impaired Gait No (0 pts) Mobility Assist Device Used No (0 pt) Altered Elimination No (0 pt) Score/Fall Risk Level 0 - 2 = Low Risk Oriented to surroundings, Maintained a safe environment, Educated pt \T\ family on fall prevention, incl call for assistance when getting out of bed. Abuse screen: Denies threats or abuse. Nutritional screening: No deficits noted. Tuberculosis screening: No symptoms or risk factors identified. Assessment: 17:00 General: Appears in no apparent distress. Behavior is calm, cooperative. mb9 17:00 Pain: Complains of pain in left hand. Neuro: Palomares Agitation-Sedation Scale (RASS): mb9 0 - Alert and Calm Level of Consciousness is awake, alert, obeys commands, Oriented to person, place, time, situation, Appropriate for age. Cardiovascular: Patient's skin is warm and dry. Respiratory: Airway is patent Respiratory effort is even, unlabored, Respiratory pattern is regular, symmetrical. GI: No signs and/or symptoms were reported involving the gastrointestinal system. : No signs and/or symptoms were reported regarding the genitourinary system. EENT: No signs and/or symptoms were reported regarding the EENT system. Derm: Abscess located on left hand is dime sized, has purulent drainage, is raised. Musculoskeletal: Range of motion: intact in all extremities. Vital Signs: 16:38 Pulse 65; Resp 16; Temp 97.8(TE); Pulse Ox 100% on R/A; hb 17:40 BP 128 / 84; Pulse 68; Resp 16; Pulse Ox 100% on R/A; mb9 ED Course: 16:21 Patient arrived in ED. mg5 16:24 Jyoti Ko FNP-C [facility] snw 16:24 Floyd Rivas MD is Attending Physician. snw 16:40 Triage completed. hb 16:40 Arm band placed on. hb 17:10 Lien Paz RN is Primary Nurse. mb9 17:40 Bed in low position. Call light in reach. Side rails up X 1. Client placed on mb9 continuous cardiac and pulse oximetry monitoring. NIBP monitoring applied. 17:41 No provider procedures requiring assistance completed. Patient did not have IV access mb9 during this emergency room visit. Administered Medications: 17:39 Not Given (Patient Refused): [id number] mg IM once mb9 17:39 Drug: Mupirocin Topical Ointment 2 % 1 application Topical once Route: Topical; Site: mb9 affected area; 17:39 Drug: Hibiclens Topical Liquid 4 % 1 application Topical once Route: Topical; Site: mb9 affected area; Medication: 17:41 VIS not applicable for this client. mb9 Outcome: 17:26 Discharge ordered by . sngerald 17:41 Discharged to home ambulatory, with family, fabiana 17:41 Condition: stable 17:41 Discharge instructions given to patient, family, Instructed on discharge instructions, follow up and referral plans. Demonstrated understanding of instructions, follow-up care, medications, Prescriptions given X 2, 17:41 Patient left the ED. mb9 Signatures: Jyoti Ko, ALUMINUM SIDING APPLICATOR-C ALUMINUM SIDING APPLICATOR-Csnw Dora Wright, RN RN Lien Faustin RN RN mb9 Aria Leigh mg5
--- NOTE | 2023-05-26 17:27 | EDPHYS ---
Physician Documentation [facility] Name: Halie Landa Age: 57 yrs Sex: Female : 1965 Arrival Date: 05/26/2023 Time: 16:17 Bed 9 Private MD: ED Physician Floyd Rivas HPI: 05/26 16:46 This 57 yrs old Female presents to ER via Ambulatory with complaints of Infected Finger.snw 16:46 Onset: The symptoms/episode began/occurred acutely. Associated signs and symptoms: snw Pertinent positives: tenderness and erythema, green exudate at nail border. The patient has not experienced similar symptoms in the past. The patient has not recently seen a physician, called but was unable to secure a timely appointment for an office visit. Historical: - Allergies: 16:40 Codeine; hb 16:40 Vancomycin; hb - Home Meds: 16:40 Jardiance 25 mg oral tablet daily [Active]; rosuvastatin 10 mg oral tablet daily hb [Active]; irbesartan 75 mg oral tablet [Active]; fluoxetine 20 mg Oral tablet daily [Active]; Ozempic 2 mg/dose (8 mg/3 mL) subcutaneous Pen Injector every week [Active]; Ambien 5 mg Oral tablet every day at bedtime [Active]; - PMHx: 16:40 diabetes mellitus; high chloresterol; Hypertensive disorder; hb - Immunization history:: Adult Immunizations up to date. - Social history:: Smoking status: Patient denies any tobacco usage or history of. ROS: 16:45 Constitutional: Negative for fever, chills, and weight loss, Eyes: Negative for injury, snw pain, redness, and discharge, ENT: Negative for injury, pain, and discharge, Neck: Negative for injury, pain, and swelling, Cardiovascular: Negative for chest pain, palpitations, and edema, Respiratory: Negative for shortness of breath, cough, wheezing, and pleuritic chest pain, Abdomen/GI: Negative for abdominal pain, nausea, vomiting, diarrhea, and constipation, Back: Negative for injury and pain, : Negative for injury, bleeding, discharge, and swelling, MS/Extremity: Negative for injury and deformity, Neuro: Negative for headache, weakness, numbness, tingling, and seizure, Psych: Negative for depression, anxiety, suicide ideation, homicidal ideation, and hallucinations, 16:45 Skin: Positive for abscess, swelling, tenderness, Exam: 16:44 Constitutional: This is a well developed, well nourished patient who is awake, alert, snw and in no acute distress. Head/Face: Normocephalic, atraumatic. Eyes: Pupils equal round and reactive to light, extra-ocular motions intact. Lids and lashes normal. Conjunctiva and sclera are non-icteric and not injected. Cornea within normal limits. Periorbital areas with no swelling, redness, or edema. Neck: Trachea midline, no thyromegaly or masses palpated, and no cervical lymphadenopathy. Supple, full range of motion without nuchal rigidity, or vertebral point tenderness. No Meningismus. Chest/axilla: Normal chest wall appearance and motion. Nontender with no deformity. No lesions are appreciated. Cardiovascular: Regular rate and rhythm with a normal S1 and S2. No gallops, murmurs, or rubs. Normal PMI, no JVD. No pulse deficits. Respiratory: Lungs have equal breath sounds bilaterally, clear to auscultation and percussion. No rales, rhonchi or wheezes noted. No increased work of breathing, no retractions or nasal flaring. Abdomen/GI: Soft, non-tender, with normal bowel sounds. No distension or tympany. No guarding or rebound. No evidence of tenderness throughout. Back: No spinal tenderness. No costovertebral tenderness. Full range of motion. MS/ Extremity: Pulses equal, no cyanosis. Neurovascular intact. Full, normal range of motion. Neuro: Awake and alert, GCS 15, oriented to person, place, time, and situation. Cranial nerves II-XII grossly intact. Motor strength 5/5 in all extremities. Sensory grossly intact. Cerebellar exam normal. Normal gait. Psych: Awake, alert, with orientation to person, place and time. Behavior, mood, and affect are within normal limits. 16:44 Skin: Appearance: normal except for affected area, abscess, that is moderate sized, of the left index fingernail with paronychia, with surrounding cellulitis, that is mild, Vital Signs: 16:38 Pulse 65; Resp 16; Temp 97.8(TE); Pulse Ox 100% on R/A; hb 17:40 BP 128 / 84; Pulse 68; Resp 16; Pulse Ox 100% on R/A; mb9 Procedures: 17:24 I \T\ D: Incision and drainage was performed for an abscess of the left index finger snw paronychia Prepped with hibiclens. Anesthetized with nothing. Incised with moved cuticle with blunt tip needle. Drained moderate amount purulent fluid. Dressing: non-Adherent dressing, the patient tolerated the procedure well. MDM: 16:44 Patient medically screened. snw 16:46 Differential diagnosis: bacterial infection, paronychia, cellulitis. Data reviewed: snw vital signs, nurses notes. 17:24 I considered the following discharge prescriptions or medication management in the [facility] emergency department Medications were administered in the Emergency Department. See SEP. 05/26 17:26 Order name: Wound Care; Complete Time: 17:39 snw 05/26 17:26 Order name: Wound dressing; Complete Time: 17:39 snw Administered Medications: 17:39 Not Given (Patient Refused): [id number] mg IM once mb9 17:39 Drug: Mupirocin Topical Ointment 2 % 1 application Topical once Route: Topical; Site: mb9 affected area; 17:39 Drug: Hibiclens Topical Liquid 4 % 1 application Topical once Route: Topical; Site: mb9 affected area; Disposition: 20:47 Co-signature as Attending Physician, Floyd Rivas MD I reviewed the patient's care rt provided by the Advanced Practice Provider and agree with the diagnosis and treatment plan. Disposition Summary: 05/26/23 17:26 Discharge Ordered Notes: Location: Home snw Condition: Stable snw Diagnosis - Cutaneous abscess, unspecified snw Followup: snw - With: Emergency Department - When: As needed - Reason: Worsening of condition Followup: snw - With: Private Physician - When: 2 - 3 days - Reason: Recheck today's complaints, Continuance of care, Re-evaluation by your physician Discharge Instructions: - Discharge Summary Sheet snw - Skin Abscess snw - Incision and Drainage snw - Paronychia snw - Heat Therapy snw Forms: - Medication Reconciliation Form snw - Thank You Letter snw - Antibiotic Education snw - Prescription Opioid Use snw - Patient Portal Instructions snw - Leadership Thank You Letter snw Prescriptions: - mupirocin 2 % Topical ointment - apply 1 application TOPICAL route 3 times per day; 15 gram tube; Refills: 0, snw Product Selection Permitted - Mobic 7.5 mg Oral Tablet - take 1 tablet ORAL route once daily take with food; 20 tablet; Refills: 0, snw Product Selection Permitted Signatures: Jyoti Ko, WATER CHEMIST-C WATER CHEMIST-Csnw Dora Wright, RN RN Lien Paz RN RN mb9 Floyd Rivas MD MD rt
[2023-05-26] MEDS ORDERED: KETOROLAC 30 MG/ML INJ ONE (17:48)
[2023-05-26] MEDS ORDERED: MUPIROCIN 2% OINT 22GM TUBE TOP ONE (17:48)
[2023-05-26 19:13] VITALS: TEMP 97.8; O2SAT 100
[2023-05-26 19:15] VITALS: BP 128/84
== END 2023-05-26 17:41 | disposition home or self-care (01) ==
LOC: ER 16:17
PROC: 0H9GXZZ Drainage of Left Hand Skin, External Approach (ICD-10-PCS; principal; 2023-05-26)
DX: L02.512 Cutaneous abscess of left hand (principal); E11.9 Type 2 diabetes mellitus without complications; I10 Essential (primary) hypertension; Z88.3 Allergy status to other anti-infective agents; Z88.5 Allergy status to narcotic agent
CPT/HCPCS: 99283